=== PATIENT | male | born 1940 | race Caucasian/White ===

== ENCOUNTER 2016-09-27 10:03 | Emergency (ER) | payer OTHER ==
[~2016-09-27] VITALS: Ht 165.1 cm; Wt 65.0 kg
[~2016-09-27 10:03] MED LIST: ADULT LOW DOSE81 M1 PO; ALPHAGAN P100 DROP/5 BOTH EYES; ASPIR 8181 M1 PO; ASPIR-LOW81 MG PO; CALCITRIOL0.25 MCG; CALCITRIOL0.25 MCG PO; CARVEDILOL12.5 MG PO; CATAPRES0.1 MG PO; CHRONULAC,CEPHUL1 ML PO; CLONIDINE HCL0.1 MG PO; COLACE100 MG PO; CRANBERRY CONC1 EACH PO; DOC-Q-LAX TABL1 EACH PO; DOCU LIQUI50 MG/5 ML PO; DOCUSATE SODIU100 MG PO; DULCOLAX10 MG PR; ENULOSE10 GM/15 M PO; ERGOCALCIF8000 UNIT/ PO; FISH OIL 1,001000 M1 PO; FUROSEMIDE40 MG PO; K-DUR10 MEQ PO; K-DUR20 MEQ PO; KLOR-CON M2020 MEQ PO; LACTULOSE PO; LACTULOSE10 GM/151 PO; LATANOPROST2.5 ML BOTH EYES; LEVEMIR FL100 UNIT/1 SC; LEVEMIR FL100 UNITS/ SC; LEVEMIR100 UNIT/1 SQ; LEVEMIR100 UNIT/2 SC; LIQUACEL 100 LI30 ML PO; LIQUACEL LIQUI960 ML PO; LIQUACEL976 ML PO; LISINOPRIL2.5 MG PO; MAG-OX400 M1 PO; MAGNESIUM400 M1 PO; METOPROLOL TART25 MG PO; MIDODRINE HCL5 MG PO; NABI650T PO; NOVOLOG 10100 UNITS/ SC; NOVOLOG PE100 UNITS/ SC; NOVOLOG100 UNIT/1 SC; NOVOLOG100 UNIT/2 SQ; PAROXETINE HCL40 MG PO; PAXIL30 MG PO; PAXIL40 MG PO; PERITONEAL DIALYSIS; PLAVIX75 MG PO; POTASSIUM CHLO20 ME1 PO; PROAMATINE10 MG PO; PROSOURCE275 GM PO; PROTONIX40 M1 PO; PROTONIX40 MG PO; RANITIDINE HCL150 MG PO; RENAPLEX-D PO; ROCALTROL0.25 MCG PO; SENNA LAX8.6 MG PO; SENNA8.6 MG PO; SIMBRINZA 1%-0.28 ML BOTH EYES; SUPER B COMPLE1 EACH PO; SYSTANE BALANCE10 ML OP; TOPROL XL25 MG PO; TRUSOPT5 ML BOTH EYES; TUMS FRESHERS200 MG PO; TUMS500 MG PO; VITAMIN D1000 UNIT PO; VITAMIN D31000 UNI2 PO; VITAMIN D31000 UNIT PO; WELCHOL625 MG PO; XALATAN2.5 ML BOTH EYES
[2016-09-27 13:04] LABS: HEMATOCRIT 33.4 % (38.0-50.0); MCH 29.9 PG (29.0-34.0); MCHC 33.2 G/DL (30.0-36.0); MEAN PLAT.VOLUME 11.3 uM^3 (9.0-12.4); PLATELET COUNT 173 K/uL (156-360); RBC DIS.WIDTH-SD 44.9 % (39-53); RED BLOOD COUNT 3.71 M/uL (4.00-5.50); WHITE BLOOD COUNT 8.6 K/uL (4.1-10.2)
[2016-09-27 13:18] LABS: CHLORIDE 96 mEq/L (99-109); POTASSIUM 3.2 mEq/L (3.7-5.4); SODIUM 136 mEq/L (136-147)
[2016-09-27 13:20] LABS: GLUCOSE 151 mg/dL (70-99)
[2016-09-27 13:21] LABS: ANION GAP 13 MEQ/L (2-14)
[2016-09-27 13:22] LABS: TOTAL BILIRUBIN 0.8 mg/dL (0.0-1.0)
[2016-09-27 13:24] LABS: ALKALINE PHOSPHATASE 195 IU/L (3-129); GFR ESTIMATE (CALCULATED) 9 mL/min/
[2016-09-27 13:25] LABS: UREA NITROGEN (BUN) 43 mg/dL (9-23)
[2016-09-27 15:14] VITALS: BP 150/65
== END 2016-09-27 16:32 | disposition home or self-care (01) ==
LOC: EME 10:03
PROVIDERS: Emergency Medicine
PROC: 0WW Anatomical Regions, General, Revision (ICD-10-PCS; principal; 2016-09-27)
DX: T82.43XA Leakage of vascular dialysis catheter, initial encounter (principal); E11.9 Type 2 diabetes mellitus without complications; Z87.442 Personal history of urinary calculi; Z86.73 Personal history of transient ischemic attack (TIA), and cerebral infarction without residual deficits; Z95.1 Presence of aortocoronary bypass graft; Z79.4 Long term (current) use of insulin; Z79.02 Long term (current) use of antithrombotics/antiplatelets; Z79.82 Long term (current) use of aspirin; Z87.891 Personal history of nicotine dependence
CPT/HCPCS: 80053; 82948; 85027; 87040; 87801; 99281; 99284

== ENCOUNTER 2016-10-01 15:25 | Inpatient (IN) | payer OTHER ==
[~2016-10-01] VITALS: Ht 170.2 cm; Wt 64.3 kg
[2016-10-01 16:20] LABS: EOSINOPHIL (%) 0.2 % (0-5); HEMATOCRIT 33.5 % (38.0-50.0); IMMATURE GRANULOCYTE (%) 0.2 % (0.0-0.7); IMMATURE GRANULOCYTE COUNT 0.2 K/uL; LYMPHOCYTE COUNT 4.5 K/uL (1.0-2.8); MCH 29.8 PG (29.0-34.0); MCHC 33.1 G/DL (30.0-36.0); MCV 90.1 FL (86-99); MEAN PLAT.VOLUME 11.5 uM^3 (9.0-12.4); MONOCYTE (%) 6.2 % (3-12); MONOCYTE COUNT 0.6 K/uL (0-0.8); NEUTROPHIL (%) 48.8 % (45-76); NEUTROPHIL COUNT 4.9 K/uL (1.8-6.4); PLATELET COUNT 197 K/uL (156-360); RBC DIS.WIDTH-CV 14.1 % (11.8-14.6); RBC DIS.WIDTH-SD 44.6 % (39-53); RED BLOOD COUNT 3.72 M/uL (4.00-5.50); WHITE BLOOD COUNT 10.1 K/uL (4.1-10.2)
[2016-10-01 16:30] LABS: INTER. NORMALIZED RATIO 1.2; PROTHROMBIN TIME 11.9 (9.2-11.2); PTT 28.7 (25-32)
[2016-10-01 16:32] LABS: CHLORIDE 97 mEq/L (99-109); POTASSIUM 2.8 mEq/L (3.7-5.4); SODIUM 137 mEq/L (136-147)
[2016-10-01 16:33] LABS: MAGNESIUM 1.2 mg/dL (1.3-2.7)
[2016-10-01 16:34] LABS: GLUCOSE 223 mg/dL (70-99)
[2016-10-01 16:36] LABS: ANION GAP 11 MEQ/L (2-14)
[2016-10-01 16:38] LABS: GFR ESTIMATE (CALCULATED) 10 mL/min/
[2016-10-01 16:39] LABS: UREA NITROGEN (BUN) 33 mg/dL (9-23)
[2016-10-01 16:41] LABS: TROP-I INTERPRETATION NEGATIVE; TROPONIN-I 0.12 ng/mL (0.0-0.30)
[2016-10-01 17:06] LABS: INFLUENZA A VIRAL ANTIGEN NEGATIVE; INFLUENZA B VIRAL ANTIGEN NEGATIVE
[2016-10-01 17:23] LABS: BODY FLUID RBC'S < 1000 /MM^3 (0-100); BODY FLUID WBC'S 406 /MM^3 (0-500)
[2016-10-01 17:28] LABS: ADD MIUA? YES; BILIRUBIN SMALL; BLOOD NEGATIVE; COLOR DK YELLOW ((YELLOW)); GLUCOSE (STRIP) >=1000; KETONES NEGATIVE; LEUKOCYTES SMALL; NITRITE NEGATIVE; PROTEIN (STRIP) >=300; SPECIFIC GRAVITY 1.019 (1.000-1.030)
[2016-10-01 17:50] LABS: BODY FLUID LDH 28 IU/L
[2016-10-01 17:51] LABS: BODY FLUID PROTEIN 0.3 G/DL
[2016-10-01 17:52] LABS: BACTERIA RARE; CASTS NONE SEEN /LPF; CRYSTALS PRESENT; EPITHELIAL CELLS RARE; MUCUS NONE SEEN; RED BLOOD CELLS RARE /HPF (0-5); UCUL ADDED? NO
[2016-10-01 17:53] LABS: AMORPHOUS URATES CRYSTALS 3+
[2016-10-01 17:59] LABS: BODY FLUID EOSINOPHILS 0 % (0-25); MONO RAW COUNT 57; MONONUCLEAR WBC'S 57 %; POLY RAW COUNT 43; POLYNUCLEAR WBC'S 43 % (0-25)
[2016-10-01] MEDS ORDERED: METOPROLOL TART25 MG PO (19:24)
[2016-10-01] MEDS ORDERED: PROTONIX40 MG PO (19:28)
[2016-10-01 22:04] VITALS: BP 132/60
[2016-10-01 22:22] LABS: POINT-OF-CARE METER ID UU13113725
[2016-10-02] VITALS (7 sets, daily range): BP systolic 128–172; BP diastolic 60–89
[2016-10-02 09:31] LABS: HEMATOCRIT 28.1 % (38.0-50.0); MCH 28.4 PG (29.0-34.0); MCHC 32.4 G/DL (30.0-36.0); MCV 87.8 FL (86-99); MEAN PLAT.VOLUME 10.8 uM^3 (9.0-12.4); PLATELET COUNT 153 K/uL (156-360); RBC DIS.WIDTH-CV 14.1 % (11.8-14.6); RBC DIS.WIDTH-SD 45.2 % (39-53); WHITE BLOOD COUNT 7.3 K/uL (4.1-10.2)
[2016-10-02 09:36] LABS: ANION GAP 9 MEQ/L (2-14); CHLORIDE 101 MEQ/L (99-109); GFR ESTIMATE (CALCULATED) 9 mL/min/; POTASSIUM 2.6 MEQ/L (3.7-5.4); SAMPLE HEMOLYSIS CHECK 0; SAMPLE ICTERIC CHECK 0; SAMPLE LIPEMIA CHECK 0; SODIUM 139 MEQ/L (136-147); UREA NITROGEN (BUN) 35 mg/dL (9-23)
[2016-10-02 09:43] LABS: GLUCOSE 97 mg/dL (70-99)
[2016-10-02 11:20] LABS: POINT-OF-CARE METER ID UU13113725
[2016-10-02 11:39] LABS: POINT-OF-CARE METER ID UU13113747; POINT-OF-CARE USER ID STWBNM43
[2016-10-02 16:56] LABS: POINT-OF-CARE METER ID UU13113725
[2016-10-02 21:58] LABS: POINT-OF-CARE METER ID UU13113725
[2016-10-03] VITALS (8 sets, daily range): BP systolic 124–1135; BP diastolic 52–88
[2016-10-03 05:49] LABS: POINT-OF-CARE METER ID UU13113725
[2016-10-03 06:19] LABS: EOSINOPHIL (%) 0.9 % (0-5); EOSINOPHIL COUNT 0.1 K/uL (0-0.3); HEMATOCRIT 29.3 % (38.0-50.0); IMMATURE GRANULOCYTE (%) 0.3 % (0.0-0.7); LYMPHOCYTE COUNT 3.9 K/uL (1.0-2.8); MCH 29.1 PG (29.0-34.0); MCHC 32.8 G/DL (30.0-36.0); MCV 88.8 FL (86-99); MONOCYTE (%) 6.1 % (3-12); MONOCYTE COUNT 0.6 K/uL (0-0.8); NEUTROPHIL (%) 49.2 % (45-76); NEUTROPHIL COUNT 4.5 K/uL (1.8-6.4); RBC DIS.WIDTH-CV 14.2 % (11.8-14.6); RBC DIS.WIDTH-SD 45.9 % (39-53); WHITE BLOOD COUNT 9.1 K/uL (4.1-10.2)
[2016-10-03 07:33] LABS: PLAT.SUFFICIENCY ADEQUATE; PLATELET COUNT UNABLE TO REPORT K/uL (156-360)
[2016-10-03 07:35] LABS: ANION GAP 10 MEQ/L (2-14); CHLORIDE 98 MEQ/L (99-109); GFR ESTIMATE (CALCULATED) 10 mL/min/; MAGNESIUM 1.7 mg/dl (1.3-2.7); SAMPLE HEMOLYSIS CHECK 1; SAMPLE ICTERIC CHECK 0; SAMPLE LIPEMIA CHECK 0; SODIUM 134 MEQ/L (136-147); UREA NITROGEN (BUN) 32 mg/dL (9-23)
[2016-10-03 07:36] LABS: GLUCOSE 248 mg/dL (70-99); POTASSIUM 3.2 MEQ/L (3.7-5.4); VANCOMYCIN, TROUGH 11.7 MCG/ML (10-20)
[2016-10-03 08:35] LABS: TYPE OF FLUID PERITONEAL
[2016-10-03 08:56] LABS: BODY FLUID RBC'S 2 /MM^3 (0-100); BODY FLUID WBC'S 53 /MM^3 (0-500); RED CELL AREA COUNTED 18; RED CELL DILUTION 1; WBC AREA COUNTED 18; WBC DILUTION 1; WHITE CELL RAW COUNT 96
[2016-10-03 09:02] LABS: BODY FLUID EOSINOPHILS 0 % (0-25); MONO RAW COUNT 32; MONONUCLEAR WBC'S 32 %; POLY RAW COUNT 68; POLYNUCLEAR WBC'S 68 % (0-25)
[2016-10-03 15:49] LABS: POINT-OF-CARE METER ID UU13113725
[2016-10-04] VITALS (8 sets, daily range): BP systolic 135–186; BP diastolic 60–80
[2016-10-04 07:12] LABS: EOSINOPHIL (%) 0.6 % (0-5); EOSINOPHIL COUNT 0.1 K/uL (0-0.3); HEMATOCRIT 30.1 % (38.0-50.0); IMMATURE GRANULOCYTE (%) 0.2 % (0.0-0.7); LYMPHOCYTE COUNT 6.7 K/uL (1.0-2.8); MCH 29.8 PG (29.0-34.0); MCHC 33.6 G/DL (30.0-36.0); MCV 88.8 FL (86-99); MEAN PLAT.VOLUME 11.7 uM^3 (9.0-12.4); MONOCYTE (%) 6.1 % (3-12); MONOCYTE COUNT 0.8 K/uL (0-0.8); NEUTROPHIL (%) 42.6 % (45-76); NEUTROPHIL COUNT 5.7 K/uL (1.8-6.4); RBC DIS.WIDTH-CV 14.3 % (11.8-14.6); RED BLOOD COUNT 3.39 M/uL (4.00-5.50)
[2016-10-04 07:15] LABS: PLATELET COUNT 206 K/uL (156-360); WHITE BLOOD COUNT 13.3 K/uL (4.1-10.2)
[2016-10-04 07:22] LABS: ANION GAP 9 MEQ/L (2-14); CHLORIDE 99 MEQ/L (99-109); GFR ESTIMATE (CALCULATED) 11 mL/min/; POTASSIUM 3.2 MEQ/L (3.7-5.4); SAMPLE HEMOLYSIS CHECK 0; SAMPLE ICTERIC CHECK 0; SAMPLE LIPEMIA CHECK 0; SODIUM 135 MEQ/L (136-147); UREA NITROGEN (BUN) 27 mg/dL (9-23)
[2016-10-04 07:25] LABS: GLUCOSE 57 mg/dL (70-99)
[2016-10-04 10:49] LABS: TYPE OF FLUID PERITONEAL
[2016-10-04 11:18] LABS: BODY FLUID EOSINOPHILS 0 % (0-25); BODY FLUID RBC'S 1 /MM^3 (0-100); BODY FLUID WBC'S 3 /MM^3 (0-500); MONO RAW COUNT 5; MONONUCLEAR WBC'S 83 %; POLY RAW COUNT 1; POLYNUCLEAR WBC'S 17 % (0-25); RED CELL AREA COUNTED 18; RED CELL DILUTION 1; WBC AREA COUNTED 18; WBC DILUTION 1; WHITE CELL RAW COUNT 6
[2016-10-04 11:30] LABS: POINT-OF-CARE USER ID 609231305
[2016-10-04 16:08] LABS: POINT-OF-CARE METER ID UU13113725
[2016-10-05 03:12] VITALS: BP 159/65
[2016-10-05 07:28] LABS: TYPE OF FLUID PD FLUID
[2016-10-05 07:44] LABS: MAGNESIUM 1.6 mg/dl (1.3-2.7)
[2016-10-05 07:45] LABS: VANCOMYCIN, TROUGH 23.2 MCG/ML (10-20)
[2016-10-05 08:08] LABS: BODY FLUID RBC'S 2 /MM^3 (0-100); RED CELL AREA COUNTED 18; RED CELL DILUTION 1
[2016-10-05 08:09] LABS: BODY FLUID WBC'S 15 /MM^3 (0-500); WBC AREA COUNTED 18; WBC DILUTION 1; WHITE CELL RAW COUNT 27
[2016-10-05 08:22] VITALS: BP 142/70
[2016-10-05 08:58] LABS: BODY FLUID EOSINOPHILS 3 % (0-25); MONO RAW COUNT 61; MONONUCLEAR WBC'S 61 %; POLY RAW COUNT 36; POLYNUCLEAR WBC'S 36 % (0-25)
[2016-10-05 16:26] VITALS: BP 151/80
[2016-10-05 16:31] LABS: POINT-OF-CARE METER ID UU13113725
[2016-10-05 23:32] VITALS: BP 174/78
[2016-10-06 07:48] LABS: TYPE OF FLUID PD FLUID
[2016-10-06 07:56] VITALS: BP 162/71
[2016-10-06 08:44] LABS: BODY FLUID RBC'S 3 /MM^3 (0-100); BODY FLUID WBC'S 11 /MM^3 (0-500); RED CELL AREA COUNTED 18; RED CELL DILUTION 1; WBC AREA COUNTED 18; WBC DILUTION 1; WHITE CELL RAW COUNT 20
[2016-10-06 08:52] LABS: BODY FLUID EOSINOPHILS 0 % (0-25); MONO RAW COUNT 64; MONONUCLEAR WBC'S 64 %; POLY RAW COUNT 36; POLYNUCLEAR WBC'S 36 % (0-25)
[2016-10-06 09:54] LABS: HEMATOCRIT 30.6 % (38.0-50.0); MCH 29.2 PG (29.0-34.0); MCHC 32.7 G/DL (30.0-36.0); MCV 89.5 FL (86-99); MEAN PLAT.VOLUME 11.3 uM^3 (9.0-12.4); PLATELET COUNT 205 K/uL (156-360); RBC DIS.WIDTH-CV 14.2 % (11.8-14.6); RBC DIS.WIDTH-SD 46.2 % (39-53); RED BLOOD COUNT 3.42 M/uL (4.00-5.50)
[2016-10-06 09:56] LABS: WHITE BLOOD COUNT 9.1 K/uL (4.1-10.2)
[2016-10-06 10:34] LABS: ANION GAP 7 MEQ/L (2-14); CHLORIDE 95 MEQ/L (99-109); GFR ESTIMATE (CALCULATED) 14 mL/min/; MAGNESIUM 1.6 mg/dl (1.3-2.7); POTASSIUM 3.3 MEQ/L (3.7-5.4); SAMPLE HEMOLYSIS CHECK 0; SAMPLE ICTERIC CHECK 0; SAMPLE LIPEMIA CHECK 0; SODIUM 133 MEQ/L (136-147); UREA NITROGEN (BUN) 25 mg/dL (9-23)
[2016-10-06 10:35] LABS: GLUCOSE 204 mg/dL (70-99); VANCOMYCIN, TROUGH 19.8 MCG/ML (10-20)
[2016-10-06 16:03] VITALS: BP 140/70
[2016-10-06 16:07] LABS: BASE EXCESS 5.3 mEq/L (-3 to +3); BICARBONATE 28.9 mEq/L (22-26); CARBOXY HGB 1.6 % (0-5); COMMENTS - BLOOD GASES A+C+; DEVICE RA; METHEMOGLOBIN 1.3 % (0-1.5); PCO2 37 mm Hg (35-45); PO2 83 mm Hg (80-100); SITE RR
[2016-10-06 16:08] LABS: TOTAL RESP RATE 16 resp/min
[2016-10-06 20:50] LABS: POINT-OF-CARE METER ID UU13113725
[2016-10-06 23:08] VITALS: BP 140/66
[2016-10-07 06:01] LABS: POINT-OF-CARE METER ID UU13113725
[2016-10-07 06:44] LABS: HEMATOCRIT 27.5 % (38.0-50.0); MCHC 32.7 G/DL (30.0-36.0); MCV 88.7 FL (86-99); MEAN PLAT.VOLUME 11.4 uM^3 (9.0-12.4); PLATELET COUNT 173 K/uL (156-360); RBC DIS.WIDTH-CV 14.1 % (11.8-14.6); RBC DIS.WIDTH-SD 45.7 % (39-53); WHITE BLOOD COUNT 7.2 K/uL (4.1-10.2)
[2016-10-07 07:08] LABS: ANION GAP 8 MEQ/L (2-14); CHLORIDE 101 MEQ/L (99-109); GFR ESTIMATE (CALCULATED) 14 mL/min/; GLUCOSE 156 mg/dL (70-99); MAGNESIUM 1.6 mg/dl (1.3-2.7); SAMPLE HEMOLYSIS CHECK 0; SAMPLE ICTERIC CHECK 0; SAMPLE LIPEMIA CHECK 0; SODIUM 136 MEQ/L (136-147); UREA NITROGEN (BUN) 25 mg/dL (9-23)
[2016-10-07 07:17] LABS: VANCOMYCIN, TROUGH 17.4 MCG/ML (10-20)
[2016-10-07 08:00] VITALS: BP 126/68
[2016-10-07 08:27] LABS: TYPE OF FLUID PD FLUID
[2016-10-07 08:45] LABS: RED CELL DILUTION 1
[2016-10-07 08:46] LABS: BODY FLUID RBC'S 2 /MM^3 (0-100); BODY FLUID WBC'S 7 /MM^3 (0-500); RED CELL AREA COUNTED 18; WBC AREA COUNTED 18; WBC DILUTION 1; WHITE CELL RAW COUNT 13
[2016-10-07 09:46] LABS: BODY FLUID EOSINOPHILS 1 % (0-25); MONO RAW COUNT 79; MONONUCLEAR WBC'S 79 %; POLY RAW COUNT 20; POLYNUCLEAR WBC'S 20 % (0-25)
[2016-10-07 11:29] LABS: POINT-OF-CARE METER ID UU13113725
[2016-10-07 17:05] VITALS: BP 150/65
[2016-10-07 21:11] LABS: POINT-OF-CARE METER ID UU13113725
[2016-10-08 07:31] LABS: TYPE OF FLUID PERITONEAL
[2016-10-08 08:07] LABS: BODY FLUID RBC'S 7 /MM^3 (0-100); BODY FLUID WBC'S 14 /MM^3 (0-500); RED CELL AREA COUNTED 18; RED CELL DILUTION 1; WBC AREA COUNTED 18; WBC DILUTION 1; WHITE CELL RAW COUNT 25
[2016-10-08 08:15] LABS: BODY FLUID EOSINOPHILS 0 % (0-25); MONO RAW COUNT 80; MONONUCLEAR WBC'S 80 %; POLY RAW COUNT 20; POLYNUCLEAR WBC'S 20 % (0-25)
[2016-10-08 08:30] VITALS: BP 146/82
[2016-10-08 08:32] LABS: MCH 28.6 PG (29.0-34.0); MCV 89.3 FL (86-99); MEAN PLAT.VOLUME 10.9 uM^3 (9.0-12.4); PLATELET COUNT 186 K/uL (156-360); RBC DIS.WIDTH-CV 14.4 % (11.8-14.6); RBC DIS.WIDTH-SD 46.5 % (39-53); RED BLOOD COUNT 3.36 M/uL (4.00-5.50); WHITE BLOOD COUNT 9.2 K/uL (4.1-10.2)
[2016-10-08 09:02] LABS: ANION GAP 6 MEQ/L (2-14); CHLORIDE 101 MEQ/L (99-109); GFR ESTIMATE (CALCULATED) 13 mL/min/; GLUCOSE 125 mg/dL (70-99); POTASSIUM 4.4 MEQ/L (3.7-5.4); SAMPLE HEMOLYSIS CHECK 0; SAMPLE ICTERIC CHECK 0; SAMPLE LIPEMIA CHECK 0; SODIUM 135 MEQ/L (136-147); UREA NITROGEN (BUN) 23 mg/dL (9-23)
[2016-10-08 09:06] LABS: VANCOMYCIN, TROUGH 15.3 MCG/ML (10-20)
[2016-10-08 11:50] LABS: POINT-OF-CARE METER ID UU13113725
[2016-10-08 12:04] VITALS: BP 139/65
[2016-10-08 16:36] VITALS: BP 153/70
[2016-10-08 21:17] LABS: POINT-OF-CARE METER ID UU13113725
[2016-10-08 23:44] VITALS: BP 140/84
[2016-10-09 07:00] LABS: TYPE OF FLUID PERITONEAL
[2016-10-09 07:41] LABS: ANION GAP 7 MEQ/L (2-14); CHLORIDE 101 MEQ/L (99-109); GFR ESTIMATE (CALCULATED) 13 mL/min/; GLUCOSE 128 mg/dL (70-99); POTASSIUM 4.5 MEQ/L (3.7-5.4); SAMPLE HEMOLYSIS CHECK 0; SAMPLE ICTERIC CHECK 0; SAMPLE LIPEMIA CHECK 0; SODIUM 137 MEQ/L (136-147); UREA NITROGEN (BUN) 22 mg/dL (9-23)
[2016-10-09 08:00] VITALS: BP 111/55; BP 146/64
[2016-10-09 08:07] LABS: BODY FLUID RBC'S 0 /MM^3 (0-100); BODY FLUID WBC'S 21 /MM^3 (0-500); RED CELL AREA COUNTED 18; RED CELL DILUTION 1; WBC AREA COUNTED 18; WBC DILUTION 1; WHITE CELL RAW COUNT 37
[2016-10-09 08:10] LABS: BODY FLUID EOSINOPHILS 0 % (0-25); MONO RAW COUNT 90; MONONUCLEAR WBC'S 90 %; POLY RAW COUNT 10; POLYNUCLEAR WBC'S 10 % (0-25)
[2016-10-09 11:56] LABS: POINT-OF-CARE METER ID UU13113725
[2016-10-09 16:41] LABS: POINT-OF-CARE METER ID UU13113725
[2016-10-09 19:08] VITALS: BP 158/75
[2016-10-09 20:50] VITALS: BP 110/60
[2016-10-09 23:19] VITALS: BP 136/60
[2016-10-10 08:09] LABS: TYPE OF FLUID PERITONEAL
[2016-10-10 08:41] LABS: BODY FLUID RBC'S 1 /MM^3 (0-100); BODY FLUID WBC'S 14 /MM^3 (0-500); RED CELL DILUTION 1; WBC DILUTION 1; WHITE CELL RAW COUNT 25
[2016-10-10 09:05] VITALS: BP 152/72
[2016-10-10 09:34] LABS: BODY FLUID EOSINOPHILS 0 % (0-25); MONO RAW COUNT 87; MONONUCLEAR WBC'S 87 %; POLY RAW COUNT 13; POLYNUCLEAR WBC'S 13 % (0-25)
[2016-10-10 11:54] LABS: POINT-OF-CARE METER ID UU13113725
[2016-10-10 16:12] VITALS: BP 132/64
[2016-10-10 23:10] VITALS: BP 141/63
[2016-10-11 07:13] VITALS: BP 104/56
[2016-10-11 13:19] LABS: EOSINOPHIL (%) 0.6 % (0-5); EOSINOPHIL COUNT 0.1 K/uL (0-0.3); HEMATOCRIT 30.4 % (38.0-50.0); IMMATURE GRANULOCYTE (%) 0.2 % (0.0-0.7); LYMPHOCYTE COUNT 5.6 K/uL (1.0-2.8); MCH 29.7 PG (29.0-34.0); MCHC 32.6 G/DL (30.0-36.0); MCV 91.3 FL (86-99); MEAN PLAT.VOLUME 11.2 uM^3 (9.0-12.4); MONOCYTE (%) 5.5 % (3-12); MONOCYTE COUNT 0.6 K/uL (0-0.8); NEUTROPHIL (%) 41.6 % (45-76); NEUTROPHIL COUNT 4.5 K/uL (1.8-6.4); PLATELET COUNT 195 K/uL (156-360); RBC DIS.WIDTH-CV 15.1 % (11.8-14.6); RBC DIS.WIDTH-SD 49.2 % (39-53); RED BLOOD COUNT 3.33 M/uL (4.00-5.50); WHITE BLOOD COUNT 10.7 K/uL (4.1-10.2)
[2016-10-11 14:02] LABS: ANION GAP 11 MEQ/L (2-14); CHLORIDE 100 MEQ/L (99-109); GFR ESTIMATE (CALCULATED) 11 mL/min/; GLUCOSE 226 mg/dL (70-99); MAGNESIUM 1.9 mg/dl (1.3-2.7); POTASSIUM 4.8 MEQ/L (3.7-5.4); SAMPLE HEMOLYSIS CHECK 0; SAMPLE ICTERIC CHECK 0; SAMPLE LIPEMIA CHECK 0; SODIUM 138 MEQ/L (136-147); UREA NITROGEN (BUN) 27 mg/dL (9-23)
[2016-10-11 15:20] VITALS: BP 133/58
[2016-10-11 15:20] LABS: TYPE OF FLUID PD FLUID
[2016-10-11 15:33] LABS: POINT-OF-CARE METER ID UU13113725
[2016-10-11 15:45] LABS: RED CELL DILUTION 1
[2016-10-11 15:49] LABS: BODY FLUID RBC'S 0 /MM^3 (0-100); BODY FLUID WBC'S 5 /MM^3 (0-500); RED CELL AREA COUNTED 18; WBC AREA COUNTED 18; WBC DILUTION 1; WHITE CELL RAW COUNT 9
[2016-10-11 16:10] LABS: BODY FLUID EOSINOPHILS 0 % (0-25); MONO RAW COUNT 70; MONONUCLEAR WBC'S 70 %; POLY RAW COUNT 30; POLYNUCLEAR WBC'S 30 % (0-25)
[2016-10-11 21:13] LABS: POINT-OF-CARE METER ID UU13113725
[2016-10-11 23:33] VITALS: BP 155/63
[2016-10-12 07:23] LABS: TYPE OF FLUID PD FLUID
[2016-10-12 08:00] VITALS: BP 136/71
[2016-10-12 08:07] LABS: RED CELL DILUTION 1
[2016-10-12 08:08] LABS: BODY FLUID RBC'S 2 /MM^3 (0-100); BODY FLUID WBC'S 10 /MM^3 (0-500); RED CELL AREA COUNTED 18; WBC AREA COUNTED 18; WBC DILUTION 1; WHITE CELL RAW COUNT 18
[2016-10-12 08:42] LABS: BODY FLUID EOSINOPHILS 0 % (0-25); MONO RAW COUNT 52; MONONUCLEAR WBC'S 52 %; POLY RAW COUNT 48; POLYNUCLEAR WBC'S 48 % (0-25)
[2016-10-12 11:52] LABS: POINT-OF-CARE METER ID UU13113725
[2016-10-12 16:04] VITALS: BP 143/56
[2016-10-12 16:59] LABS: POINT-OF-CARE METER ID UU13113725
[2016-10-12 21:57] LABS: POINT-OF-CARE METER ID UU13113725
[2016-10-12 23:13] VITALS: BP 115/62
[2016-10-13 06:45] LABS: TYPE OF FLUID PD FLUID
[2016-10-13 06:50] LABS: EOSINOPHIL (%) 0.9 % (0-5); EOSINOPHIL COUNT 0.1 K/uL (0-0.3); HEMATOCRIT 34.7 % (38.0-50.0); IMMATURE GRANULOCYTE (%) 0.3 % (0.0-0.7); LYMPHOCYTE COUNT 6.1 K/uL (1.0-2.8); MCH 29.6 PG (29.0-34.0); MCHC 32.3 G/DL (30.0-36.0); MCV 91.6 FL (86-99); MEAN PLAT.VOLUME 11.4 uM^3 (9.0-12.4); MONOCYTE (%) 6.7 % (3-12); MONOCYTE COUNT 0.8 K/uL (0-0.8); NEUTROPHIL (%) 39.4 % (45-76); NEUTROPHIL COUNT 4.6 K/uL (1.8-6.4); PLATELET COUNT 211 K/uL (156-360); RBC DIS.WIDTH-CV 15.3 % (11.8-14.6); RBC DIS.WIDTH-SD 49.3 % (39-53); RED BLOOD COUNT 3.79 M/uL (4.00-5.50); WHITE BLOOD COUNT 11.7 K/uL (4.1-10.2)
[2016-10-13 06:56] LABS: ANION GAP 10 MEQ/L (2-14); CHLORIDE 99 MEQ/L (99-109); GFR ESTIMATE (CALCULATED) 10 mL/min/; GLUCOSE 163 mg/dL (70-99); POTASSIUM 4.5 MEQ/L (3.7-5.4); SAMPLE HEMOLYSIS CHECK 0; SAMPLE ICTERIC CHECK 0; SAMPLE LIPEMIA CHECK 0; SODIUM 136 MEQ/L (136-147); UREA NITROGEN (BUN) 29 mg/dL (9-23); VANCOMYCIN, TROUGH 15.1 MCG/ML (10-20)
[2016-10-13 07:11] LABS: BODY FLUID RBC'S 1 /MM^3 (0-100); BODY FLUID WBC'S 4 /MM^3 (0-500); RED CELL AREA COUNTED 18; RED CELL DILUTION 1; WBC AREA COUNTED 18; WBC DILUTION 1; WHITE CELL RAW COUNT 8
[2016-10-13 07:18] VITALS: BP 106/62
[2016-10-13 08:16] LABS: BODY FLUID EOSINOPHILS 0 % (0-25); MONO RAW COUNT 70; MONONUCLEAR WBC'S 70 %; POLY RAW COUNT 30; POLYNUCLEAR WBC'S 30 % (0-25)
[2016-10-13 14:57] VITALS: BP 112/64
[2016-10-13 21:30] LABS: POINT-OF-CARE METER ID UU13113725
[2016-10-14 06:27] LABS: POINT-OF-CARE METER ID UU13113725
[2016-10-14 06:30] LABS: TYPE OF FLUID PD FLUID
[2016-10-14 07:19] VITALS: BP 131/60
[2016-10-14 07:22] LABS: BODY FLUID RBC'S 0 /MM^3 (0-100); BODY FLUID WBC'S 4 /MM^3 (0-500); RED CELL AREA COUNTED 18; RED CELL DILUTION 1; WBC AREA COUNTED 18; WBC DILUTION 1; WHITE CELL RAW COUNT 8
[2016-10-14 07:29] LABS: BODY FLUID EOSINOPHILS 0 % (0-25); MONO RAW COUNT 94; MONONUCLEAR WBC'S 94 %; POLY RAW COUNT 6; POLYNUCLEAR WBC'S 6 % (0-25)
[2016-10-14 07:30] LABS: COMMENT FEW MACROPHAGES
[2016-10-14 08:08] LABS: POINT-OF-CARE METER ID UU13113725
[2016-10-14 09:03] LABS: HEMATOCRIT 36.1 % (38.0-50.0); MCHC 31.3 G/DL (30.0-36.0); MCV 92.6 FL (86-99); MEAN PLAT.VOLUME 11.3 uM^3 (9.0-12.4); PLATELET COUNT 272 K/uL (156-360); RBC DIS.WIDTH-CV 15.6 % (11.8-14.6); RBC DIS.WIDTH-SD 49.8 % (39-53); WHITE BLOOD COUNT 14.3 K/uL (4.1-10.2)
[2016-10-14 09:23] LABS: EOSINOPHIL (%) 0.6 % (0-5); EOSINOPHIL COUNT 0.1 K/uL (0-0.3); IMMATURE GRANULOCYTE (%) 0.2 % (0.0-0.7); LYMPHOCYTE COUNT 8.6 K/uL (1.0-2.8); MONOCYTE (%) 5.1 % (3-12); MONOCYTE COUNT 0.7 K/uL (0-0.8); NEUTROPHIL (%) 33.2 % (45-76); NEUTROPHIL COUNT 4.7 K/uL (1.8-6.4)
[2016-10-14 09:29] LABS: TROP-I INTERPRETATION NEGATIVE; TROPONIN-I 0.07 ng/mL (0.0-0.30)
[2016-10-14 09:59] LABS: ANION GAP 15 MEQ/L (2-14); CHLORIDE 98 MEQ/L (99-109); POTASSIUM 4.4 MEQ/L (3.7-5.4); SAMPLE HEMOLYSIS CHECK 0; SAMPLE ICTERIC CHECK 0; SAMPLE LIPEMIA CHECK 0; SODIUM 134 MEQ/L (136-147)
[2016-10-14 10:05] LABS: GFR ESTIMATE (CALCULATED) 10 mL/min/; GLUCOSE 207 mg/dL (70-99); UREA NITROGEN (BUN) 30 mg/dL (9-23)
[2016-10-14 12:47] LABS: POINT-OF-CARE METER ID UU13113725
[2016-10-14 15:35] LABS: TROP-I INTERPRETATION NEGATIVE; TROPONIN-I 0.06 ng/mL (0.0-0.30)
[2016-10-14 20:10] VITALS: BP 103/57
[2016-10-14 20:18] LABS: TROP-I INTERPRETATION NEGATIVE; TROPONIN-I 0.08 ng/mL (0.0-0.30)
[2016-10-15 06:35] VITALS: BP 129/59
[2016-10-15 07:51] LABS: TYPE OF FLUID PD FLUID
[2016-10-15 08:21] LABS: BODY FLUID RBC'S 1 /MM^3 (0-100); BODY FLUID WBC'S 2 /MM^3 (0-500); RED CELL DILUTION 1; WBC DILUTION 1; WHITE CELL RAW COUNT 3
[2016-10-15 08:59] LABS: EOSINOPHIL (%) 0.4 % (0-5); EOSINOPHIL COUNT 0.1 K/uL (0-0.3); HEMATOCRIT 31.8 % (38.0-50.0); IMMATURE GRANULOCYTE (%) 0.1 % (0.0-0.7); LYMPHOCYTE COUNT 7.8 K/uL (1.0-2.8); MCH 30.1 PG (29.0-34.0); MCV 91.1 FL (86-99); MEAN PLAT.VOLUME 11.7 uM^3 (9.0-12.4); MONOCYTE (%) 5.8 % (3-12); MONOCYTE COUNT 0.8 K/uL (0-0.8); NEUTROPHIL (%) 36.4 % (45-76); NEUTROPHIL COUNT 4.9 K/uL (1.8-6.4); PLATELET COUNT 262 K/uL (156-360); RBC DIS.WIDTH-CV 15.8 % (11.8-14.6); RBC DIS.WIDTH-SD 49.9 % (39-53); RED BLOOD COUNT 3.49 M/uL (4.00-5.50); WHITE BLOOD COUNT 13.6 K/uL (4.1-10.2)
[2016-10-15 09:04] LABS: BODY FLUID EOSINOPHILS 0 % (0-25); MONO RAW COUNT 9; MONONUCLEAR WBC'S 90 %; POLY RAW COUNT 1; POLYNUCLEAR WBC'S 10 % (0-25)
[2016-10-15 12:02] LABS: POINT-OF-CARE METER ID UU13113725
[2016-10-15 15:27] VITALS: BP 75/42
[2016-10-15 16:29] LABS: POINT-OF-CARE METER ID UU13113725
[2016-10-15 22:44] VITALS: BP 134/65
[2016-10-16 07:45] VITALS: BP 162/74
[2016-10-16 07:49] LABS: TYPE OF FLUID PD FLUID
[2016-10-16 08:07] LABS: BODY FLUID RBC'S 0 /MM^3 (0-100); BODY FLUID WBC'S 0 /MM^3 (0-500); RED CELL AREA COUNTED 18; RED CELL DILUTION 1; WBC AREA COUNTED 18; WBC DILUTION 1; WHITE CELL RAW COUNT 0
[2016-10-16 08:08] LABS: BODY FLUID EOSINOPHILS 0 % (0-25); MONO RAW COUNT 0; MONONUCLEAR WBC'S 0 %; POLY RAW COUNT 0; POLYNUCLEAR WBC'S 0 % (0-25)
[2016-10-16 09:00] VITALS: BP 98/42
[2016-10-16 09:26] LABS: HEMATOCRIT 34.4 % (38.0-50.0); MCH 29.2 PG (29.0-34.0); MCV 91.2 FL (86-99); MEAN PLAT.VOLUME 11.6 uM^3 (9.0-12.4); PLATELET COUNT 258 K/uL (156-360); RBC DIS.WIDTH-CV 16.1 % (11.8-14.6); RBC DIS.WIDTH-SD 49.4 % (39-53); RED BLOOD COUNT 3.77 M/uL (4.00-5.50)
[2016-10-16 09:34] LABS: WHITE BLOOD COUNT 17.7 K/uL (4.1-10.2)
[2016-10-16 09:36] LABS: ANION GAP 15 MEQ/L (2-14); CHLORIDE 94 MEQ/L (99-109); GFR ESTIMATE (CALCULATED) 10 mL/min/; GLUCOSE 296 mg/dL (70-99); MAGNESIUM 2.4 mg/dl (1.3-2.7); SAMPLE HEMOLYSIS CHECK 0; SAMPLE ICTERIC CHECK 0; SAMPLE LIPEMIA CHECK 0; SODIUM 132 MEQ/L (136-147); UREA NITROGEN (BUN) 33 mg/dL (9-23)
[2016-10-16 11:03] VITALS: BP 104/48
[2016-10-16 16:24] VITALS: BP 127/66
[2016-10-16 22:32] VITALS: BP 117/58
[2016-10-17] VITALS (10 sets, daily range): BP systolic 0–91; BP diastolic 27–49
[2016-10-17 07:15] LABS: HEMATOCRIT 15.3 % (38.0-50.0); MCH 30.3 PG (29.0-34.0); MCHC 30.1 G/DL (30.0-36.0); NRBC (%) 17.5 /100 WBC (0-0); RBC DIS.WIDTH-CV 15.9 % (11.8-14.6); RBC DIS.WIDTH-SD 53.8 % (39-53)
[2016-10-17 07:16] LABS: MCV 100.7 FL (86-99); RED BLOOD COUNT 1.52 M/uL (4.00-5.50); WHITE BLOOD COUNT 11.4 K/uL (4.1-10.2)
[2016-10-17 07:17] LABS: ANION GAP 20 MEQ/L (2-14); DELETE MACHINE DIFF? YES; SAMPLE HEMOLYSIS CHECK 0; SAMPLE ICTERIC CHECK 0; SAMPLE LIPEMIA CHECK 0; UREA NITROGEN (BUN) 28 mg/dL (9-23)
[2016-10-17 07:18] LABS: CHLORIDE 108 MEQ/L (99-109); GFR ESTIMATE (CALCULATED) 19 mL/min/; GLUCOSE 433 mg/dL (70-99); POTASSIUM 2.8 MEQ/L (3.7-5.4); SODIUM 139 MEQ/L (136-147)
[2016-10-17 07:22] LABS: TROP-I INTERPRETATION NEGATIVE; TROPONIN-I 0.06 ng/mL (0.0-0.30)
[2016-10-17 07:37] LABS: ALKALINE PHOSPHATASE 74 IU/L (3-129); MAGNESIUM 2.7 mg/dl (1.3-2.7); TOTAL BILIRUBIN 0.2 MG/DL (0.0-1.0)
[2016-10-17 07:54] LABS: ABS NEUTROPHIL COUNT 6.03; ANISOCYTOSIS 1+; MACROCYTES 1+; MEAN PLAT.VOLUME 12.5 uM^3 (9.0-12.4); PLAT.SUFFICIENCY DECREASED; POLYCHROMASIA 1+; USER ID NJR
[2016-10-17 11:40] LABS: POINT-OF-CARE METER ID UU13113725
== END 2016-10-17 12:10 | DRG 919 ==
LOC: EME → EDBD 15:25 → 5EAST 20:37 → 4WEST 20:37 → EDOF 20:37 → 5EAST 21:45 → 4WEST 10-17 06:51
PROVIDERS: Emergency Medicine; Hospitalist; Internal Medicine; Internal Medicine Nephrology; Obstetrics & Gynecology; Physician Assistant
PROC: 3E1M39Z Irrigation of Peritoneal Cavity using Dialysate, Percutaneous Approach (ICD-10-PCS; principal; 2016-10-02)
PROC: 0BH17EZ Insertion of Endotracheal Airway into Trachea, Via Natural or Artificial Opening (ICD-10-PCS; 2016-10-17)
PROC: 5A12012 Performance of Cardiac Output, Single, Manual (ICD-10-PCS; 2016-10-17)
PROC: 30233N1 Transfusion of Nonautologous Red Blood Cells into Peripheral Vein, Percutaneous Approach (ICD-10-PCS; 2016-10-17)
PROC: 5A1935Z Respiratory Ventilation, Less than 24 Consecutive Hours (ICD-10-PCS; 2016-10-17)
PROC: 06HY33Z Insertion of Infusion Device into Lower Vein, Percutaneous Approach (ICD-10-PCS; 2016-10-17)
PROC: 5A2204Z Restoration of Cardiac Rhythm, Single (ICD-10-PCS; 2016-10-17)
DX: T85.71XA Infection and inflammatory reaction due to peritoneal dialysis catheter, initial encounter (principal); N18.6 End stage renal disease; K65.9 Peritonitis, unspecified; G93.41 Metabolic encephalopathy; I12.0 Hypertensive chronic kidney disease with stage 5 chronic kidney disease or end stage renal disease; R64 Cachexia; E46 Unspecified protein-calorie malnutrition; B95.7 Other staphylococcus as the cause of diseases classified elsewhere; E87.6 Hypokalemia; E11.22 Type 2 diabetes mellitus with diabetic chronic kidney disease; I25.10 Atherosclerotic heart disease of native coronary artery without angina pectoris; Z95.1 Presence of aortocoronary bypass graft; E78.5 Hyperlipidemia, unspecified; H40.9 Unspecified glaucoma; Z99.2 Dependence on renal dialysis; F03.90 Unspecified dementia, unspecified severity, without behavioral disturbance, psychotic disturbance, mood disturbance, and anxiety; J44.9 Chronic obstructive pulmonary disease, unspecified; R62.7 Adult failure to thrive; Z87.891 Personal history of nicotine dependence; Z68.22 Body mass index [BMI] 22.0-22.9, adult; I82.612 Acute embolism and thrombosis of superficial veins of left upper extremity; T88.8XXA Other specified complications of surgical and medical care, not elsewhere classified, initial encounter; Y84.8 Other medical procedures as the cause of abnormal reaction of the patient, or of later complication, without mention of misadventure at the time of the procedure; I95.9 Hypotension, unspecified; I49.01 Ventricular fibrillation; Z66 Do not resuscitate; Z51.5 Encounter for palliative care
CPT/HCPCS: 36600; 70450; 71010; 80048; 80048 91; 80053; 80202; 81003; 82009; 82040; 82803; 82945; 82948; 83605; 83615 91; 83735; 84100; 84157; 84484; 85025; 85027; 85610; 85730; 86850; 86900; 86901; 86920; 87040; 87070; 87077; 87186; 87205; 87502; 89051; 92610 GN; 92950; 93005; 93971; 94002; 95819; 97530 GP; 99281; 99285; J0171; J0282; J0461; J1265; J1644; J1815; J2405; J3370; J3475; J7040; J7050; J7070; P9016